=== PATIENT | male | born 1990 | race Caucasian/White ===

== ENCOUNTER → 2022-01-21 12:00 | Outpatient (BNVA) | payer SELFPAY | PROVIDERS: Visit Provider Nurse Practitioner Family | DX: J02.9 Acute pharyngitis, unspecified (principal) | CPT/HCPCS: 87880 ==

== ENCOUNTER 2023-04-20 21:16 | Emergency (ER) | payer SELFPAY ==
[2023-04-20 21:19] VITALS: BP 154/95; PULSE 138; RESP 18; TEMP 36.9; O2SAT 96; BMI 26.4
--- NOTE | 2023-04-20 21:20 | XRR_ITS ---
PROCEDURE INFORMATION: Exam: XR Chest Exam date and time: 04/20/2023 10:05 PM Age: 32 years old Clinical indication: Pain; Chest pressure; Additional info: Cp TECHNIQUE: Imaging protocol: Radiologic exam of the chest. Views: 1 view. COMPARISON: CR XR chest 2V* [id number] 11/19/2018 7:40 PM FINDINGS: Lungs: No consolidation. Pleural spaces: No pleural effusion. No pneumothorax. Heart/Mediastinum: No cardiomegaly. Bones/joints: No acute fracture. XR/XR chest 1V portable [id number] IMPRESSION: No acute cardiopulmonary findings.
--- NOTE | 2023-04-20 21:29 | ECG_ITS ---
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 Measurements Intervals [place] Rate: 127 P: -21 RI: 155 QRS: -41 QRSD: 110 T: 6 QT: 325 QTc: 473 Interpretive Statements SINUS TACHYCARDIA LEFT AXIS DEVIATION [QRS AXIS < -30] VOLTAGE CRITERIA FOR LVH [MEETS CRITERIA IN ONE OF: R(aVL), S(V1), R(V5), R(V5/V6)+S(V1)] Compared to ECG 11/19/2018 21:27:17 Left-axis deviation now present Left ventricular hypertrophy now present Sinus rhythm no longer present ST (T wave) deviation no longer present Early repolarization no longer present Electronically Signed On 04-21-2023 6:41:16 CDT by Jennifer Ellsworth M.D. [id number]
[2023-04-20] MEDS: metoprolol tartrate 25 mg Tablet PO (22:25)
[2023-04-20 22:27] LABS: Basophils % 0.5 %; Eosinophils # 0.1 10^3/uL (0.0-0.8); Eosinophils % 0.6 %; Hematocrit 46.8 % (42.0-52.0); Lymphocytes # 1.5 10^3/uL (0.8-4.8); Lymphocytes % 17.5 %; Mean Corpuscular HGB Conc 34.2 g/dL (30.0-36.0); Mean Corpuscular Hemoglobin 29.4 pg (28.0-34.0); Mean Platelet Volume 10.8 fL (7.4-10.4); Monocytes # 0.7 10^3/uL (0.2-0.9); Monocytes % 8.1 %; Neutrophils # 6.26 10^3/uL (1.8-7.7); Neutrophils % 73.1 %; Nucleated Red Blood Cells % 0 %; Platelet Count 256 10^3/cmm (130-400); Red Blood Count 5.44 10^6/uL (4.1-5.3); Red Cell Distribution Width 12.3 % (12.1-15.1); White Blood Count 8.6 10^3/uL (4.0-10.0)
[2023-04-20 22:28] VITALS: BP 132/79; PULSE 105; RESP 16; O2SAT 95
[2023-04-20 22:44] LABS: Troponin(5th) Baseline 6 ng/L (0-15)
[2023-04-20 22:59] VITALS: BP 113/71; PULSE 74; RESP 16; O2SAT 94
[2023-04-20 23:09] LABS: Alanine Aminotransferase 27 U/L (0-41); Albumin Level 5.2 g/dL (3.5-5.2); Alkaline Phosphatase 51 U/L (40-130); Aspartate Amino Transferase 21 U/L (0-40); Blood Urea Nitrogen 11 mg/dL (6-20); Calcium 9.9 mg/dL (8.5-10.5); Carbon Dioxide 24 mmol/L (22-29); Chloride 98 mmol/L (98-107); Globulin 2.2 g/dL (1.3-4.6); Glomerular Filtration Rate 131.5 mL/min (90-130); Glucose 194 mg/dL (65-115); Osmolality Calculated 285 mOsm/kg (285-295); Sodium 135 mmol/L (136-145); Thyroid Stimulating Hormone 1.74 uIU/mL (0.27-4.20); Total Bilirubin 0.6 mg/dL (0.15-1.2); Total Protein 7.4 g/dL (6.6-8.7)
--- NOTE | 2023-04-20 23:19 | ED_ITS ---
HPI - Anxiety General: Chief Complaint: Anxiety Stated Complaint: tightness on chest, anxiety Time Seen by Provider: 04/20/23 22:10 Source: patient Mode of arrival: ambulatory Limitations: no limitations History of Present Illness: 32-year-old male states he been having feelings of anxiety throughout the day along with some slight chest pain. He states he is seen at [facility] he is hypertensive they started him on clonidine he states he took 1 and then later today his blood pressure worsening getting he felt very anxious about it. He states he is feeling improved currently has had no vomiting no diarrhea denies any pain currently Associated symptoms: Reports chest pain; Deny chills, fever(s), headache(s), nausea or vomiting Review of Systems Const: Denies: fever(s) or chills ENMT: Denies: throat pain or dental pain Card: Reports: chest pain Resp: Denies: dyspnea GI: Denies: abdominal pain, nausea, vomiting or diarrhea : Denies: dysuria Musc: Denies: neck pain or back pain Skin/Breast: Denies: rash Neuro: Denies: headache(s) PFSH ED PFSH: Social History Smoking and tobacco status: current every day smoker (vape) Physical Exam Const: COMMON NORMALS: no acute distress, patient oriented x3 and healthy appearing HENMT: COMMON NORMALS: normocephalic and atraumatic HEAD & SCALP: normocephalic and atraumatic Eye: COMMON NORMALS: Equal, round and reactive pupils present and EOMs intact bilaterally PUPIL: Yes Equal, round and reactive pupils present Neck/C-Spine: COMMON NORMALS: full ROM and supple Chest: COMMONS NORMALS: normal inspection of the chest and normal palpation of entire chest wall Resp: COMMON NORMALS: normal respiratory effort, No retractions, No use of accessory muscles and clear to auscultation bilaterally AUSCULTATION: clear to auscultation bilaterally Cardio: COMMON NORMALS: regular rate, regular rhythm and No murmurs present (Cardio) RATE: regular rate RHYTHM: regular rhythm GI: COMMON NORMALS: Normal to inspection, nondistended, normoactive bowel sounds present, Soft to palpation, non-tender and no masses PALPATION: Yes Soft to palpation Extremity: COMMON NORMALS: normal to inspection and full ROM Neuro: COMMON NORMALS: patient oriented x3, moves all extremities and no focal motor deficits Psych: COMMON NORMALS: mental status grossly normal, Normal thought process present and cooperative THOUGHT PROCESS: Normal thought process present Skin: COMMON NORMALS: no rashes or lesions noted and no wounds GENERAL SKIN EXAM: no rashes or lesions noted Course Vital Signs: Vital signs: Vital Signs Temperature 98.4 F 04/20/23 21:19 Pulse Rate 74 04/20/23 22:59 Respiratory Rate 16 04/20/23 22:59 Blood Pressure 113/71 04/20/23 22:59 Pulse Oximetry 94 04/20/23 22:59 Oxygen Delivery Me thod Room Air 04/20/23 21:19 MDM - Anxiety Medical Decision Making Patient presents with hypertension along with anxiety his troponin here is no rmal heart rates much improved. He was prescribed clonidine today we will have him stop the clonidine and start him on metoprolol he is to follow-up with PCP and return if worsening. No signs of dissection or pulm embolism. Patient was tachycardic his heart rate now is in the 70s. Medical Records I reviewed the patient's medical records. Lab Data I reviewed the patient's lab results. 04/20/23 22:12 04/20/23 22:12 Radiology Impressions Chest X-Ray 04/20/23 21:20 IMPRESSION: No acute cardiopulmonary findings. Laboratory Results WBC 8.6 10^3/uL (4.0-10.0) 04/20/23 22:12 RBC 5.44 10^6/uL (4.1-5.3) H 04/20/23 22:12 Hgb 16.0 g/dL (11.7-16.6) 04/20/23 22:12 Hct 46.8 % (42.0-52.0) 04/20/23 22:12 MCV 86.0 fl (80-94) 04/20/23 22:12 MCH 29.4 pg (28.0-34.0) 04/20/23 22:12 MCHC 34.2 g/dL (30.0-36.0) 04/20/23 22:12 RDW 12.3 % (12.1-15.1) 04/20/23 22:12 Plt Count 256 10^3/cmm (130-400) 04/20/23 22:12 MPV 10.8 fL (7.4-10.4) H 04/20/23 22:12 Neut % (Auto) 73.1 % 04/20/23 22:12 Lymph % (Auto) 17.5 % 04/20/23 22:12 [place] % (Auto) 8.1 % 04/20/23 22:12 Eos % (Auto) 0.6 % 04/20/23 22:12 Baso % (Auto) 0.5 % 04/20/23 22:12 Neut # (Auto) 6.26 10^3/uL (1.8-7.7) 04/20/23 22:12 Lymph # (Auto) 1.5 10^3/uL (0.8-4.8) 04/20/23 22:12 [place] # (Auto) 0.7 10^3/uL (0.2-0.9) 04/20/23 22:12 Eos # (Auto) 0.1 10^3/uL (0.0-0.8) 04/20/23 22:12 Baso # (Auto) 0.0 10^3/uL (0.0-0.1) 04/20/23 22:12 Nucleated RBC % (auto) 0 % 04/20/23 22:12 Nucleated RBCs # 0.0 /100WBC 04/20/23 22:12 Sodium 135 mmol/L (136-145) L 04/20/23 22:12 Potassium 3.0 mmol/L (3.5-5.1) L 04/20/23 22:12 Chloride 98 mmol/L (98-107) 04/20/23 22:12 Carbon Dioxide 24 mmol/L (22-29) 04/20/23 22:12 Anion Gap 16.0 (5-19) 04/20/23 22:12 BUN 11 mg/dL (6-20) 04/20/23 22:12 Creatinine 0.7 mg/dL (0.7-1.2) 04/20/23 22:12 GFR Calculation 131.5 mL/min (90-130) H 04/20/23 22:12 Glucose 194 mg/dL (65-115) H 04/20/23 22:12 Calculated Osmolality 285 mOsm/kg (285-295) 04/20/23 22:12 Calcium 9.9 mg/dL (8.5-10.5) 04/20/23 22:12 Total Bilirubin 0.6 mg/dL (0.15-1.2) 04/20/23 22:12 AST 21 U/L (0-40) 04/20/23 22:12 ALT 27 U/L (0-41) 04/20/23 22:12 Alkaline Phosphatase 51 U/L (40-130) 04/20/23 22:12 Troponin T Baseline 6 ng/L (0-15) 04/20/23 22:12 Total Protein 7.4 g/dL (6.6-8.7) 04/20/23 22:12 Albumin 5.2 g/dL (3.5-5.2) 04/20/23 22:12 Globulin 2.2 g/dL (1.3-4.6) 04/20/23 22:12 TSH 1.74 uIU/mL (0.27-4.20) 04/20/23 22:12 Discharge Plan Discharge Patient Disposition: Home Clinical Impression: Acute anxiety, Hypertension Condition: Stable Prescriptions: New metoprolol succinate 25 mg tablet extended release 24 hr 25 mg PO DAILY Qty: 30 0RF Discontinued clonidine HCl 0.1 mg Tablet 0.1 mg PO BID No Action amoxicillin 500 mg capsule 500 mg PO BID 10 Days Qty: 20 0RF Discharge Orders: Discharge ED (Routine); Ordered 04/20/23 Ordered By: Timi Salinas Discharge Diet: Advance as tolerated Discharge Activity: Resume usual activity Patient Instructions: Hypertension (ED), Anxiety (ED) Coding Level of Care Code ED Youth Liaison Officer for Lang Gallardo
--- NOTE | 2023-04-20 23:24 | ECG_ITS ---
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 Measurements Intervals [place] Rate: 85 P: 55 SD: 144 QRS: 90 QRSD: 98 T: 63 QT: 343 QTc: 409 Interpretive Statements SINUS RHYTHM EARLY REPOLARIZATION [ST ELEVATION WITH NORMALLY INFLECTED T-WAVE] Compared to ECG 04/20/2023 21:29:45 Early repolarization now present Sinus tachycardia no longer present Left-axis deviation no longer present Left ventricular hypertrophy no longer present Electronically Signed On 04-22-2023 20:11:32 CDT by Osbaldo Estrada M.D. [id number]
[2023-04-20 23:37] VITALS: BP 113/71; PULSE 74; RESP 16; TEMP 36.9; O2SAT 94
== END 2023-04-20 23:40 | disposition home or self-care (01) ==
PROVIDERS: Emergency Provider Emergency Medicine
DX: F41.9 Anxiety disorder, unspecified (principal); I10 Essential (primary) hypertension; F17.290 Nicotine dependence, other tobacco product, uncomplicated
CPT/HCPCS: 36415; 71045; 80053; 84443; 84484; 85025; 93005; 99285